=== PATIENT | female | born 1965 | race Two or more races ===

== ENCOUNTER 2021-01-30 10:48 | Outpatient (CLI) | payer OTHER, SELFPAY ==
--- NOTE | ~2021-01-30 | US_ITS ---
EXAMINATION: US soft tissue groin RT DATE: 01/30/2021 11:30 INDICATION: Right inguinal lymphadenopathy. TECHNIQUE: Multiple grayscale and Doppler ultrasound images of the right inguinal region of concern w ere obtained. COMPARISON: None FINDINGS: There is a 4.1 x 3.0 x 1.1 cm multilobulated anechoic cystic structure at the region of the palpable abnormality which demonstrates no internal flow or surrounding hyperemia on color Doppler. The lesion appears to taper laterally towards a possible thin neck near the right common femoral vessels which suggests fluid within a right inguinal hernia sac or a ganglion cyst arising from the right hip has l ikely potential etiologies. No solid soft tissue nodules or pathologically enlarged inguinal lymph no deepali identified. IMPRESSION: 1. Right inguinal palpable abnormality corresponds to a nonspecific 4.1 x 2.0 x 1.1 cm cystic structu re with potential etiologies including small amount of ascites within a right inguinal hernia sac or a ganglion cyst arising from the right hip. Reviewed, dictated and finalized at location A. SFORMATION MANAGER IMPRESSION: 1. Right inguinal palpable abnormality corresponds to a nonspecific 4.1 x 2.0 x 1.1 cm cystic structure with potential etiologies including small amount of as cites within a right inguinal hernia sac or a ganglion cyst arising from the ri ght hip.
--- NOTE | ~2021-01-30 | XR_ITS ---
EXAMINATION: XR knee RT 3V DATE: 01/30/2021 11:41 INDICATION: Right knee pain. TECHNIQUE: 3 views of right knee were obtained. COMPARISON: None. FINDINGS: Bone alignment is normal. No fracture. There is mild tricompartmental osteoarthritis charac terized by marginal osteophytes. No joint space narrowing. No knee joint effusion. IMPRESSION: 1. Mild right knee osteoarthritis. Reviewed, dictated and finalized at location B. DRY MOLDER
[2021-01-30 11:06] LABS: Add Urine Microscopic? YES; Appearance Urine Clear (Clear); Basophils Absolute Auto 0.02 K/mm3 (0.00-0.10); Basophils Percent Auto 0.5 % (0.0-1.0); Bilirubin Urine Negative (Negative); Blood Urine 1+ (Negative); Color Urine Light Yellow (Yellow); Eosinophils Absolute Auto 0.08 K/mm3 (0.02-0.50); Glucose Urine UA Negative (Negative); Hemoglobin 12.6 g/dL (12.0-15.0); Immature Granulocyte Absolute 0.01 K/mm3 (0.00-0.00); Immature Granulocyte Percent A 0.2 % (0.0-0.0); Ketones Urine Negative (Negative); Leukocyte Esterase Ur Negative LEU/UL (Negative); Mean Corpuscular HGB Conc 33.2 g/dL (32.0-36.0); Mean Corpuscular Hemoglobin 30.7 pg (27.0-31.0); Mean Corpuscular Volume 92.7 fL (78.0-102.0); Mean Platelet Volume 10.6 fl (9.2-11.8); Monocytes Absolute Auto 0.37 K/mm3 (0.10-0.90); Neutrophils Percent Auto 49.3 % (50.0-70.0); Nitrate Urine Negative (Negative); Platelet Count Result 258 K/mm3 (150-420); Protein Urine Negative (Negative); Red Cell Distribution Width 12.4 % (11.6-14.4); Urobilinogen Urine 0.2 mg/dL (0.2-1.0); White Blood Count 4.1 K/mm3 (4.8-10.8)
[2021-01-30 11:12] LABS: RBC Urine None seen /hpf (0-2); WBC Urine None seen /hpf (0-3)
[2021-01-30 11:13] LABS: Bacteria Urine None seen /hpf; Squamous Epithelial Cell Urine None seen /hpf (Few)
[2021-01-30 12:04] LABS: Alanine Aminotransferase 30 U/L (14-59); Albumin Level 3.9 g/dL (3.4-5.0); Alkaline Phosphatase 61 U/L (46-116); Anion Gap 8 mmol/L (8-16); Aspartate Amino Transferase 20 U/L (15-37); Bilirubin,Total 0.5 mg/dL (0.00-1.00); Blood Urea Nitrogen 12 mg/dL (7-18); Calcium 9.1 mg/dL (8.5-10.1); Carbon Dioxide 29 mmol/L (21-32); Chloride 105 mmol/L (98-108); Cholesterol 245 mg/dL (0-200); Estimated Glomerular Filt Rate > 60; Free T3 2.47 pg/mL (2.18-3.98); Free T4 Free Thyroxine 0.71 ng/dL (0.76-1.46); Glucose 89 mg/dL (70-99); HDL Direct 95 mg/dL (40-60); Iron 90 ug/dL (50-170); LDL Cholesterol Calculated 141 mg/dL (<130); Lactate Dehydrogenase 184 U/L (81-234); Osmolality Calculated 292 mOsm/kg (285-295); Potassium 4.5 mmol/L (3.5-5.1); Sodium 142 mmol/L (136-145); Thyroid Stimulating Hormone 1.26 uIU/mL (0.36-3.74); Total Protein 6.8 g/dL (6.4-8.2); Triglycerides 45 mg/dL (0-150)
[2021-01-31 15:13] LABS: Hemoglobin A1C 5.9 % (<5.7)
[2021-02-01 17:24] LABS: Vitamin D 25 Hydroxy 13 ng/mL (30-100)
== END 2021-01-30 10:49 | disposition home or self-care (01) ==
LOC: CHSIMG 10:52
PROVIDERS: PCP Internal Medicine; Visit Provider Internal Medicine
DX: Z00.00 Encounter for general adult medical examination without abnormal findings (principal); I49.3 Ventricular premature depolarization; R59.0 Localized enlarged lymph nodes; D50.9 Iron deficiency anemia, unspecified; E55.9 Vitamin D deficiency, unspecified; M25.561 Pain in right knee
CPT/HCPCS: 36415; 73562; 76882; 80053; 80061; 81001; 82306; 83036; 83540; 83615; 84439; 84443; 84481; 85025

== ENCOUNTER 2021-02-10 07:06 | Outpatient (CLI) | payer OTHER, SELFPAY ==
--- NOTE | ~2021-02-10 | CT_ITS ---
EXAMINATION: CT pelvis w con DATE: 02/10/2021 08:12 INDICATION: Right groin cyst. Right groin tenderness. TECHNIQUE: Computed tomography (CT) of the pelvis was performed with 100 mL Omnipaque 350 intravenous contrast. Automated exposure control and iterative reconstruction technique were employed. The dose- length product was 227.17 mGy-cm. COMPARISON: CT abdomen and pelvis 06/25/2009, ultrasound 01/30/2021 FINDINGS: There are no dilated loops of bowel. There are no pathologically enlarged lymph nodes. Ther e is a right inguinal hernia containing ascites. Osteitis pubis is noted. There is mild lumbar spondy losis. IMPRESSION: 1. Right inguinal hernia containing ascites. Reviewed, dictated and finalized at location A. SIZER
--- NOTE | ~2021-02-10 | MM_ITS ---
EXAMINATION: MM screening pablo BI w pratima HISTORY: Screening mammogram TECHNIQUE: Craniocaudal and mediolateral oblique 3-D tomosynthesis images were obtained and synthetic 2-D images were generated. CAD analysis was submitted and interpreted. COMPARISON: No prior mammogram is available for comparison at this institution. BREAST PARENCHYMAL COMPOSITION: The breasts are heterogeneously dense, which may obscure small masses . FINDINGS: There is no evidence of suspicious mass, calcification, or architectural distortion to sugg est malignancy in either breast. There has been no suspicious interval change. IMPRESSION: 1. No mammographic evidence of malignancy. 2. Recommend routine screening mammography in one year. BI-RADS Category 1: Negative Reviewed, dictated and finalized at location A. LINE INSPECTOR
== END 2021-02-10 07:07 | disposition home or self-care (01) ==
LOC: CHSIMG 07:07
PROVIDERS: PCP Internal Medicine; Visit Provider Internal Medicine
DX: Z12.31 Encounter for screening mammogram for malignant neoplasm of breast (principal); M25.851 Other specified joint disorders, right hip
CPT/HCPCS: 72193; 77063; 77067; Q9967

== ENCOUNTER 2024-03-13 13:25 | Outpatient (CLI) | payer BC, SELFPAY ==
--- NOTE | ~2024-03-13 | MM_ITS ---
EXAMINATION: MM screening pablo BI w pratima HISTORY: Screening mammogram TECHNIQUE: Craniocaudal and mediolateral oblique 3-D tomosynthesis images were obtained and synthetic 2-D images were generated. CAD analysis was submitted and interpreted. COMPARISON: 02/10/2021 BREAST PARENCHYMAL COMPOSITION:Dense: The breasts are heterogeneously dense, which may obscure small masses. FINDINGS: No suspicious mass, calcification, or architectural distortion are identified in either pako ast to suggest malignancy. There has been no suspicious interval change. IMPRESSION: No mammographic evidence of malignancy. Recommend routine screening mammography in one year. BI-RADS Category 1: Negative Reviewed, dictated and finalized at location . TIONAL REHABILITATION TECHNICIAN
== END 2024-03-13 13:26 | disposition home or self-care (01) ==
LOC: CHSIMG 13:28
PROVIDERS: PCP Internal Medicine; Visit Provider Internal Medicine
DX: Z12.31 Encounter for screening mammogram for malignant neoplasm of breast (principal)
CPT/HCPCS: 77063; 77067

== ENCOUNTER 2024-07-20 08:44 | Outpatient (CLI) | payer OTHER, SELFPAY ==
--- NOTE | ~2024-07-20 | CT_ITS ---
CT abdomen pelvis w con Ordering provider: Molina Carmichael MD History: 59 years Female with . RLQ PAIN,ENLARGED RT GROIN LYMPHNODES,X1WK,FATIGUE . Comparison: February 10, 2021 Technique: CT abdomen and pelvis with IV and without oral contrast. Automated exposure control and it erative reconstruction technique were employed. The dose-length product was 240.60 mGy-cm. 100 mL Omn ipaque 350 was given IV. Findings: VISUALIZED LOWER CHEST: Dependent atelectatic changes. UPPER ABDOMINAL ORGANS: Liver: Tiny hypodensity in the left lobe of the liver measuring 8 mm which may be a tiny cyst. Follow -up advised.. Gallbladder: Normal. Spleen: Normal. Stomach/duodenum: Normal. Pancreas: Normal. Adrenals: Normal. Kidneys: Normal. PELVIC ORGANS: The bladder is underfilled with thickened wall. Evaluation for cystitis advised. BOWEL AND MESENTERY: Colon: No evidence of diverticulitis. Fecal material is loaded in the colon. The appendix is not well demonstrated. Small Bowel: Normal. No obstruction. Possibility of a transient small bowel intussusception in the le ft side of the abdomen is not excluded. Peritoneum/mesentery: No free air or free fluid. No mesenteric lymphadenopathy. RETROPERITONEUM: Normal aorta. No retroperitoneal lymphadenopathy. MUSCULOSKELETAL: Superficial soft tissues: Right inguinal hernia with fluid content is seen. Bowel content is less lik pepe. The superficial soft tissues are normal. Bones: Age appropriate degenerative changes of the spine. . Symphysitis. IMPRESSION: 1. No evidence of appendicitis, diverticulitis or intestinal obstruction. 2. Small right inguinal hernia with fluid content. 3. Transient small bowel intussusception is highly suggestive. Differential include internal hernia. Follow-up advised. No obstruction is seen. 4. Constipation. Reviewed, dictated and finalized at location A. IMPRESSION: 1. No evidence of appendicitis, diverticulitis or intestinal obstruction. 2. Small right inguinal hernia with fluid content. 3. Transient small bowel intussusception is highly suggestive. Differential in clude internal hernia. Follow-up advised. No obstruction is seen. 4. Constipation.
--- OUTSIDE RECORDS SUMMARY | 2024-07-20 08:51 | XMS_ITS | Clinical Summary ---
Author Organization [facility] Address [address] [place] [address] Care Team Providers Care Cataract Lens Generator Name Role Phone Mao Phan MD Primary Care Provider [phone] Source Comments [facility],non-owned Affiliates and Associated Physician Practices is amultiple site organization consisting of ambulatory clinics and hospital sitesin [place], [place], [place] and [place]. This disclosure is being madepursuant to the Care Everywhere program and may not contain all information available regarding this patient. Last updated 17.[employer] [facility] Allergies No known active allergies Medications * Be aware that medications may not be up to date on this document. Alwaysverify current medications with the patient. No known medications Active Problems Problem Noted Date Diagnosed Date Mixed hyperlipidemia 12/08/2019 06/20/2023 PVC's (premature ventricular contractions) 04/0106/20/2023 Encounters Date Type Department Care Team Description 07/17/2024 3:00 PM CDT Office Visit [facility] - HOTEL OPERATIONS MANAGER [address] [place] [address] Vicenta Baxter MD Encounter for gynecological examination without abnormal finding (Primary Dx) 07/17/2024 Travel from Last 3 Months Family History Medical History Relation Name Comments CAD (Coronary Artery Disease) Brother Cancer - Breast Cousin CAD (Coronary Artery Disease) Father Cancer - Breast Maternal Aunt Depression Mother Diabetes - Type 2 Mother Cancer - Colon Neg Hx Cancer - Ovarian Neg Hx Cancer - Uterine Neg Hx Relation Name Status Comments Brother Cousin Father Maternal Aunt Mother Social History Tobacco Use Types Packs/Day Years Used Date Smoking Tobacco: Never Smokeless Tobacco: Never Tobacco Cessation:Counseling Given: Not Answered Alcohol Use Standard Drinks/Week Comments Yes 5 (1 standard drink = 0.6 oz pur e alcohol) PHQ-2 Answer Date Recorded Patient Health Questionnaire-2 Score 0 07/14/2024 Comments Unknown Sex and Gender Information Value Date Recorded Sex Assigned at Female 05/24/2023 4:30 PM CDT Legal Sex Female 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 - Ophthalmology [address] [place] [phone] Juan Watson MD [address] [place] [address] [place] [address] Health Maintenance Due Date Last Done Comments COLON MONITORING 1967 COLONOSCOPY - COLON CA SCREENING 1967 CT COLONOGRAPHY - COLON CA SCREENING 1967 FIT - COLON CA SCREENING 1967 FLEX SIG - COLON CA SCREENING 1967 LIPID TESTING 1967 MAMMOGRAM 1967 PAP SMEAR 1967 HIV SCREENING 1982 HEPATITIS C SCREENING 02/15/1985 DTAP/TDAP/TD VACCINES (1 - Tdap) 1986 HEPATITIS B VACCINE (1 of 3 - 19+ 3-dose series) 1986 PNEUMOCOCCAL VACCINE 50+ (1 of 1 - PCV) 2017 ZOSTER VACCINE (1 of 2) 2017 COVID-19 VACCINE (3 - 2023-2 5 season) 2023 04/02/2020, 03/05/2020 INFLUENZA VACCINE (Season Ended) 2024 COLOGUARD (AGES 45-75) - COL ON CA SCREENING 07/08/2025 07/08/2022 Colorectal Cancer Screening 07/08/2025 DEPRESSION SCREENING Completed 07/17/2024 HIB VACCINE Aged Out No longer eligi ble based on patient's age to complete this topic HPV VACCINE Aged Out No longer eligi ble based on patient's age to complete this topic MENINGOCOCCAL (Group B) VACCINE SHARED DECISION-MAKING Aged Out No longer eligible based on patient's age to complete this topic MENINGOCOCCAL GROUPS A/C/Y/W VACCINE Aged Out No longer eligible b ased on patient's age to complete this topic Insurance [employer] Care Teams Cataract Lens Generator Relationship Specialty Start Date End Date Mao Phan MD [address] [place] [address] PCP - General Internal Medicine 05/09/23
--- OUTSIDE RECORDS SUMMARY | 2024-07-20 08:51 | XMS_ITS | Encounter Summary ---
Author Organization [facility] Address [address] [place] [address] Care Team Providers Care Manager Ct Name Role Phone Mao Phan MD Primary Care Provider [phone] Reason for Visit * Reason Onset Date Comments Appointment 05/24/2023 Encounter Details Date Type Department Care Team (Late st Contact Info) Description 05/24/2023 Telephone [facility] - Centralized Scheduling [address] [place] [phone] Brooks Domingo MD [address] [place] [address] Appointment Social History Tobacco Use Types Packs/Day Years Used Date Smoking Tobacco: Never Assessed Comments Unknown Sex and Gender Information Value Date Recorded Sex Assigned at Female 05/24/2023 4:30 PM CDT Legal 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 Carmichael from [facility] is requesting an appt with Jose L. She has a lesion on the right side of her throat for few weeks that has not gone away. I scheduled her at [facility] in June. We are wondering if at all possible to get her in sooner on a Satoil spot washer at [facility]? Please and thank you! I did send her a link to activate her [employer]. documented in this encounter Plan of Treatment Upcoming Encounters Date Type Department Care Team (Late st Contact Info) Description 09/22/2024 3:15 PM CDT Office Visit [facility] - Ophthalmology [address] [place] [phone] Juan Watson MD [address] [place] [address] [place] [address] documented as of this encounter Visit Diagnoses Not on filedocumented in this encounter Care Teams Manager Ct Relationship Specialty Start Date End Date Mao Phan MD [address] [place] [id number] PCP - General Internal Medicine 05/09/23 documented as of this encounter
--- OUTSIDE RECORDS SUMMARY | 2024-07-20 08:51 | XMS_ITS | Clinical Summary ---
Author Organization [facility] Address [address] [place] [address] Care Team Providers Care Picker/Puller Name Role Phone Mao Phan MD Primary Care Provider [phone] Mark Moyer MD Unavailable [phone] Allergies No known active allergies Medications No known medications Active Problems Problem Noted Date Diagnosed Date Mixed hyperlipidemia 12/08/2019 PVC's (premature ventricular contractions) 04/01 Chest pain 10/25/2015 Palpitations 10/25/2015 Family History Medical History Relation Comments Stent Cardiac Mother Relation Status Comments Brother Alive Father Alive Mother Sister Alive Social History Tobacco Use Types Packs/Day Years Used Date Smoking Tobacco: Never Smokeless Tobacco: Never Tobacco Cessation:Counseling Given: Not Answered Alcohol Use Standard Drinks/Week Comments Yes 0 (1 standard drink = 0.6 oz pur e alcohol) 6 drinks per week Comments Unknown Sex and Gender Information Value Date Recorded Sex Assigned at Not on file Legal Sex Female 10:22 AM CDT Gender Identity Not on file Sexual Orientation Not on file 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 Not on file Not on file Last Filed Vital Signs Vital Sign Reading Time Taken Comments Blood Pressure 122/74 08/17/2022 11:57 AM CDT Pulse 67 08/17/2022 11:57 AM CDT EKG Temperature - - Respiratory Rate 17 08/17/2022 11:57 AM CDT Oxygen Saturation - - Inhaled Oxygen Concentration - - Weight 57.9 kg (127 lb 9.6 oz) 08/17/2022 11:57 AM CDT Height 162.6 cm (5' 4 ) 08/17/2022 11:57 AM CDT Body Mass Index 21.9 08/17/2022 11:57 AM CDT Plan of Treatment Health Maintenance Due Date Last Done Comments Cervical Cancer Screening Pa p Smear (Age 30 to 64) Every 3 Years 1967 Colorectal Cancer Screening Colonoscopy (10 Years) 1967 Annual Physical 1970 Hepatitis C 1985 DTaP, Tdap and Td Vaccines ( 1 - Tdap) 1986 Hepatitis B Vaccines (1 of 3 - 19+ 3-dose series) 1986 Cervical Cancer Screening Pa p with HPV Testing (Age 30 to 64) Every 5 Years 1997 Cervical Cancer Screening with HPV 1997 Mammogram Screening 2007 Pneumococcal Vaccine: 50+ Ye ars (1 of 1 - PCV) 2017 Zoster Vaccines (1 of 2) 2017 COVID-19 Vaccine ( - 2023-2 5 season) 2023 Meningococcal B Vaccine Aged Out No l onger eligible based on patient's age to complete this topic Meningococcal Vaccine Aged Out No tamara anahy eligible based on patient's age to complete this topic RSV Immunizations Under 20 Months Aged Out No longer eligible based on patient's age to complete this topic Insurance [facility] Care Teams Picker/Puller Relationship Specialty Start Date End Date Mao Phan MD [address] [place] [address] PCP - General INTERNAL MEDICINE 10/25/15 Mark Moyer MD [address] [place] [address] [place] [employer] Fitter CARDIOVASCULAR DISEASE 02/20/17
--- OUTSIDE RECORDS SUMMARY | 2024-07-20 08:51 | XMS_ITS | Referral Summary ---
Author Organization [facility] Address [address] [place] [address] Care Team Providers Care Velvet Steamer Name Role Phone Mao Phan MD Primary Care Provider [phone] Allergies No known active allergies Medications No known medications Active Problems Problem Noted Date Diagnosed Date Right inguinal hernia 05/19/2021 Social History Tobacco Use Types Packs/Day Years Used Date Smoking Tobacco: Never Smokeless Tobacco: Never AUDIT-C Answer Date Recorded Q1: How often do you have a drink containing alc ohol? 2-3 times a week 07/03/2021 Q2: How many drinks containi ng alcohol do you have on a typical day when you are drinking? 1 or 2 07/03/2021 Q3: How often do you have si x or more drinks on one occasion? 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 Gender Identity Not on file Sexual Orientation Not on file Last Filed Vital Signs Vital Sign Reading Time Taken Comments Blood Pressure 122/64 05/19/2021 9:34 AM MIXING MACHINE TENDER CORK ROD Pulse 50 05/19/2021 9:34 AM MIXING MACHINE TENDER CORK ROD Temperature 36.6 C (97.8 F) 05/19/2021 9:34 AM MIXING MACHINE TENDER CORK ROD Respiratory Rate - - Oxygen Saturation - - Inhaled Oxygen Concentration - - Weight 55.8 kg (123 lb) 07/03/2021 8:20 AM CDT Height 162.6 cm (5' 4 ) 07/03/2021 8:20 AM CDT Body Mass Index 21.11 07/03/2021 8:20 AM CDT Plan of Treatment Not on file Insurance [employer] OPEN ACCESS [employer] OPEN ACCESS [employer] OPEN ACCESS Care Teams Velvet Steamer Relationship Specialty Start Date End Date Mao Phan MD PCP - General Internal Medicine 05/08/21
--- OUTSIDE RECORDS SUMMARY | 2024-07-20 08:51 | XMS_ITS | Clinical Summary ---
Author Organization [facility] Address [address] [place] [address] Care Team Providers Care Networking Specialist Name Role Phone Mao Phan MD Primary Care Provider [phone] Allergies No known active allergies Medications No known medications Active Problems Problem Noted Date Diagnosed Date Right inguinal hernia 05/19/2021 Surgical History Surgery Date Site/Laterality Comments DILATION AND CURETTAGE OF UTERUS 03/11/2002 - 03/10/2003 Medical History Medical History Date Comments Motion sickness Family History Medical History Relation Name Comments Diabetes Mother Heart disease Mother Anesthesia problems Neg Hx Relation Name Status Comments Mother Social History Tobacco Use Types Packs/Day [...] on file Legal Sex Female 8:42 AM SOLID DIE CUTTER Gender Identity Not on file Sexual Orientation Not on file Obstetrics History Last Filed Vital Signs Vital Sign Reading Time Taken Comments Blood Pressure 122/64 05/19/2021 9:34 AM SOLID DIE CUTTER Pulse 50 05/19/2021 9:34 AM SOLID DIE CUTTER Temperature 36.6 C (97.8 F) 05/19/2021 9:34 AM SOLID DIE CUTTER Respiratory Rate - - Oxygen Saturation - - Inhaled Oxygen Concentration - - Weight 55.8 kg (123 lb) 07/03/2021 8:20 AM CDT Height 162.6 cm (5' 4 ) 07/03/2021 8:20 AM CDT Body Mass Index 21.11 07/03/2021 8:20 AM CDT Plan of Treatment Health Maintenance Due Date Last Done Comments Breast Cancer Screening-Mammogram 1967 Cervical Cancer Screening 1967 Colon Cancer Screening-Colonoscopy 1967 Depression Screening 1967 Hepatitis C Screening 1967 Hepatitis B Screening 1985 Regular Well Visit/Exam 18-64 1985 Zoster Vaccine (1 of 2) 2017 Covid-19 Vaccine (3 - 2023-2 5 season) 2023 04/02/2020, 03/05/2020 Influenza Vaccine (Season Ended) 2024 DTaP/Tdap/Td Vaccine (2 - Td or Tdap) 02/02/2026 02/03/2016, 07/17/1994 Pneumococcal vaccine <65 Aged Out No longer eligible based on patient's age to complete this topic Insurance [employer] OPEN ACCESS [employer] OPEN ACCESS [employer] OPEN ACCESS Care Teams Networking Specialist Relationship Specialty Start Date End Date Mao Phan MD PCP - General Internal Medicine 05/08/21
== END 2024-07-20 08:45 | disposition home or self-care (01) ==
LOC: CHSIMG 08:47
PROVIDERS: PCP Internal Medicine; Visit Provider Internal Medicine
DX: R10.31 Right lower quadrant pain (principal); K40.90 Unilateral inguinal hernia, without obstruction or gangrene, not specified as recurrent; K59.00 Constipation, unspecified
CPT/HCPCS: 74177; Q9967